=== PATIENT | female | born 1985 | race Caucasian/White ===

== ENCOUNTER → 2021-11-16 14:24 | Outpatient (CLI) | payer OTHER, SELFPAY ==
--- NOTE | ~2021-11-16 | XR_ITS ---
EXAM: XR hip RT 2V w AP pelvis DATE: 11/16/2021 14:37 HISTORY: M25.551 - Pain in right hip . COMPARISON: None available. FINDINGS: Normal mineralization. No fracture or dislocation. No lytic or blastic lesion. Joint space s are maintained. No erosion or periosteal change. IUD projecting over the pelvis. Soft tissues withi n normal limits. IMPRESSION: Normal right hip and pelvis radiograph findings. Reviewed, dictated and finalized at location K.
== END ==
PROVIDERS: PCP Family Medicine; Visit Provider Family Medicine
DX: M25.551 Pain in right hip (principal)
CPT/HCPCS: 73502

== ENCOUNTER 2023-10-26 14:00 | Outpatient (CLI) | payer OTHER, SELFPAY ==
[2023-10-27 13:59] LABS: FSH 3.4 mIU/mL; LH 2.1 mIU/mL
== END 2023-10-26 14:01 | disposition home or self-care (01) ==
PROVIDERS: PCP Family Medicine; Visit Provider Obstetrics & Gynecology Gynecology
DX: N95.8 Other specified menopausal and perimenopausal disorders (principal); N91.2 Amenorrhea, unspecified
CPT/HCPCS: 36415; 83001; 83002

== ENCOUNTER 2024-03-13 09:04 | Outpatient (CLI) | payer OTHER, SELFPAY ==
[2024-03-14 12:37] LABS: Kit Draw Collected
== END 2024-03-13 09:05 | disposition home or self-care (01) ==
LOC: ANHGOSHLAB 09:05
PROVIDERS: PCP Family Medicine; Visit Provider Student in an Organized Health Care Education/Training Program
DX: Z00.00 Encounter for general adult medical examination without abnormal findings (principal); M25.50 Pain in unspecified joint
CPT/HCPCS: 36415

== ENCOUNTER 2024-04-07 11:57 | Outpatient (CLI) | payer OTHER, SELFPAY ==
--- NOTE | ~2024-04-07 | XR_ITS ---
Left Knee Technique: AP and lateral views were obtained. Clinical History: Pain Findings: No fracture or dislocation is seen. Osseous alignment is anatomic. Joint spaces are preserv ed without degenerative or erosive change. Soft tissues are unremarkable. No joint effusion is seen. Impression: Unremarkable left knee radiographs. Reviewed, dictated and finalized at location . [employer] ENGINEER Impression: Unremarkable left knee radiographs.
--- NOTE | ~2024-04-07 | XR_ITS ---
Right Knee Technique: AP and lateral views were obtained. Clinical History: Pain Findings: No fracture or dislocation is seen. Osseous alignment is anatomic. Joint spaces are preserv ed without degenerative or erosive change. Soft tissues are unremarkable. No joint effusion is seen. Impression: Unremarkable right knee radiographs. Reviewed, dictated and finalized at location . [employer] Impression: Unremarkable right knee radiographs.
--- NOTE | ~2024-04-07 | XR_ITS ---
Cervical Spine: AP, lateral, open-mouth views Clinical History: Pain Findings: There is mild reversal of the normal cervical lordosis. The vertebral bodies and posterior elements appear intact. The intervertebral disc spaces are well maintained. Pre-vertebral soft tiss ues are unremarkable. Impression: Mild reversal of the normal cervical lordosis. Reviewed, dictated and finalized at [facility]. [employer] AND TRAINING MANAGER Impression: Mild reversal of the normal cervical lordosis.
== END 2024-04-07 11:58 | disposition home or self-care (01) ==
LOC: GOSHIMG 11:59
DX: M25.50 Pain in unspecified joint (principal)
CPT/HCPCS: 72040; 73560

== ENCOUNTER 2024-06-04 10:37 | Outpatient (CLI) | payer OTHER, SELFPAY ==
--- NOTE | ~2024-06-04 | CT_ITS ---
EXAMINATION: CT sinus wo con DATE: 06/04/2024 10:52 INDICATION: Sinusitis TECHNIQUE: Computed tomography (CT) of the paranasal sinuses was performed without intravenous contra st. The dose-length product was 431.77 mGy-cm. Automated exposure control and iterative reconstructio n technique were employed. COMPARISON: None FINDINGS: There is mucosal thickening of the maxillary, ethmoid sinuses. The ostiomeatal units are pa rtially occluded by soft tissue no significant nasal septal deviation. No mucoperiosteal reaction. Ma stoids are pneumatized. There is mild intracranial atherosclerosis. There is hypertrophy of the infer ior turbinates. IMPRESSION: 1. Moderate sinus disease. Reviewed, dictated and finalized at location A. IMPRESSION: 1. Moderate sinus disease.
== END 2024-06-04 10:38 | disposition home or self-care (01) ==
LOC: GOSHIMG 10:37
PROVIDERS: PCP Family Medicine; Visit Provider Family Medicine
DX: R06.5 Mouth breathing (principal); J34.89 Other specified disorders of nose and nasal sinuses
CPT/HCPCS: 70486

== ENCOUNTER 2024-07-21 13:26 | Outpatient (CLI) | payer OTHER, SELFPAY ==
--- NOTE | ~2024-07-21 | MM_ITS ---
EXAMINATION: MM screening kerri BI w aidan HISTORY: Screening mammogram TECHNIQUE: Craniocaudal and mediolateral oblique 3-D tomosynthesis images were obtained and synthetic 2-D images were generated. CAD analysis was submitted and interpreted. COMPARISON: No prior mammogram is available for comparison at this institution. BREAST PARENCHYMAL COMPOSITION:Dense: The breasts are extremely dense, which lowers the sensitivity o f mammography. FINDINGS: No suspicious mass, calcification, or architectural distortion are identified in either livan ast to suggest malignancy. There has been no suspicious interval change. IMPRESSION: No mammographic evidence of malignancy. Recommend routine screening mammography in one year. BI-RADS Category 1: Negative Reviewed, dictated and finalized at location .
== END 2024-07-21 13:27 | disposition home or self-care (01) ==
LOC: MICIMG 13:26
PROVIDERS: PCP Family Medicine; Visit Provider Obstetrics & Gynecology Gynecology
DX: Z12.31 Encounter for screening mammogram for malignant neoplasm of breast (principal)
CPT/HCPCS: 77063; 77067

== ENCOUNTER 2024-10-03 09:22 | Outpatient (CLI) | payer OTHER, SELFPAY ==
--- NOTE | ~2024-10-03 | XR_ITS ---
XR shoulder LT min 2V 10/03/2024 09:39 Indication: Left shoulder pain Procedure: 4 views left shoulder Comparison: No prior studies for comparison. Findings: No fracture, subluxation or dislocation. No significant soft tissue abnormality. No foreign bodies. Impression: 1: No significant bone or joint abnormality. Reviewed, dictated and finalized at location A. Impression: 1: No significant bone or joint abnormality.
== END 2024-10-03 09:23 | disposition home or self-care (01) ==
LOC: GOSHIMG 09:23
PROVIDERS: PCP Student in an Organized Health Care Education/Training Program; Visit Provider Student in an Organized Health Care Education/Training Program
DX: M25.512 Pain in left shoulder (principal)
CPT/HCPCS: 73030